=== PATIENT | female | born 1990 | race Caucasian/White ===

== ENCOUNTER 2019-11-14 22:05 | Inpatient (IN) | payer OTHER ==
[2019-11-14 23:07] VITALS: BMI 27.6
[2019-11-15] MEDS ORDERED: Lidocaine 1% (PF) 30 ML VIAL SC PRN
[2019-11-15] MEDS ORDERED: NS / Oxytocin 40 units/1000ml 1,000 ML IV PRN
[2019-11-15] MEDS ORDERED: Misoprostol 200 MCG TAB PR PRN
[2019-11-15] MEDS ORDERED: Ondansetron PF 4 MG/2 ML Vial IVP PRN
[2019-11-15] MEDS ORDERED: Promethazine HCl 25 MG/ML VIAL IM PRN
[2019-11-15] MEDS ORDERED: Ibuprofen 800 MG TAB PO PRN
[2019-11-15] MEDS ORDERED: HYDROcodone/Acetaminophen 5/325 mg Tablet PO PRN ×4 (00:10→05:22)
[2019-11-15 00:28] LABS: Hemoglobin 12.3 g/dL (12.0-16.0); Mean Corpuscular HGB CONC 34.8 g/dL (32.0-36.0); Mean Corpuscular Hemoglobin 33.5 pg (27.0-31.0); Mean Corpuscular Volume 96.2 fL (78.0-98.0); Mean Platelet Volume 7.7 fL (7.4-10.4); Platelet Count 224 thou/uL (130-400); RBC Distribution Width 12.1 % (11.5-14.5); Red Blood Cell (RBC) Count 3.67 mill/uL (4.20-5.40); White Blood Cell (WBC) Count 12.5 thou/uL (4.8-10.8)
[2019-11-15 01:06] LABS: HBSAg Index 0.19 S/CO (0-0.99); Hep B Surf Ag Non-Reactive S/CO (NonReactive); Syphilis Antibody Nonreactive (Nonreactive); Syphilis Antibody Index 0.04 S/CO (<1.00 Non-Reactive)
[2019-11-15] MEDS ORDERED: Oxytocin 10 UNITS/ML VIAL ONE (02:28)
--- NOTE | 2019-11-15 03:33 | PDOC.LDHP ---
Labor and Delivery H&P Chief complaint: contractions HPI: Patient started having strong contractions last night at 1900. Current gestational age (weeks): 38 Dating criteria: last menstrual period Grav: 2 Para: 1 OB History Details: 35 week IOL for Preeclampsia complicated by 3rd degree laceration Current complications: none Abnormal US findings: No Current medications: pre- vitamins, other (81 mg Aspirin PO QD) Allergies/Adverse Reactions: Allergies Allergy/AdvReac Type Severity Reaction Status Date / Time No Known Allergies Allergy Verified 11/14/19 23:07 Social history: none - Physical Exam Vital signs reviewed and normal: yes General: NAD Lungs: nonlabored breathing Abdomen: gravid FHT: category 1 - Vaginal Exam cm dilated: 5 Effacement: 90% Station: -2 - OB Labs Blood type: B RH: positive Antibody Screen: negative HIV: negative RPR: negative HEPSAg: negative 1 hour GCT: negative GBS: negative Rubella: immune - Assessment L&D Assessment: term patient in labor - Plan Plan: admit to L&D, informed consent obtained
--- NOTE | 2019-11-15 03:35 | PDOC.OPDEL ---
OB Operative/Delivery Note Delivery Dr/Surgeon: Marie Carroll Pre-Delivery Diagnosis: active labor Procedure/Post Delivery Dx: spontaneous vaginal delivery Weeks gestation: 38 Anesthesia: none - Findings A Sex: male Weight: 6 lb 14 oz - 1 min: 9 - 5 min: 9 - Additional Findings/Plan Placenta delivered: spontaneous Repaired Obstetrical Laceration: none Estimated blood loss: 95ml Compilations/Other Findings: compound presentation with both hands Post delivery plan: routine recovery
[2019-11-15] MEDS ORDERED: hydrALAZINE 20 MG/ML VIAL SLOW IVP PRN ×2 (05:22)
[2019-11-15] MEDS ORDERED: Milk Of Magnesia 30 ML UDCUP PO PRN (05:22)
[2019-11-15] MEDS ORDERED: Bisacodyl 10 MG SUPP PR PRN (05:22)
[2019-11-15] MEDS ORDERED: NS / Oxytocin 40 units/1000ml 1,000 ML IV SCH (05:22)
[2019-11-15] MEDS ORDERED: Benzocaine-Menthol 82.5 ML CAN TOP PRN (05:22)
[2019-11-15] MEDS ORDERED: Methylergonovine 0.2 MG/ML VIAL IM PRN (05:22)
[2019-11-15] MEDS ORDERED: Adacel (T-DAP) 0.5 ML SYRINGE IM ONE (09:00)
[2019-11-15] MEDS: Ibuprofen 800 MG TAB PO SCH ×3 (09:36→21:05)
[2019-11-15] MEDS: Ferrous Sulfate 325 MG TAB PO SCH ×2 (09:37→14:53)
[2019-11-15] MEDS: Docusate Calcium (SURFAK) 240 MG CAP PO SCH ×2 (09:37→21:05)
[2019-11-15] MEDS: Prenatal Vitamin 1 TAB PO SCH (09:37)
[2019-11-16] MEDS: Ibuprofen 800 MG TAB PO SCH ×2 (06:05→13:55)
--- NOTE | 2019-11-16 06:42 | PDOC.PP ---
Post Progress Note Post Day #: 1 Subjective: pt is doing well. minmal cramping pain with . up to bathroom with ease. no concerns. pt refused rhogam despite counseling because she page s not to mix other people's DNA with her own. PO intake tolerated: yes Flatus: yes Ambulation: yes Vital Signs (12 hours) Temp Pulse Resp BP Pulse Ox 11/16/19 00:05 98.4 F 63 18 102/63 98 11/15/19 20:30 98.4 F 62 18 114/58 L 98 Weight Weight 156 lb - Physical Examination General: NAD Respiratory: non-labored breathing Abdominal: lochia (minimal) Skin: no rash Neurological: no gross focal deficits Psychiatric: A&Ox3, normal affect Result Diagrams: 11/15/19 00:20 Additional Labs: Post Labs Blood Type B NEGATIVE 11/15/19 00:37 Hep Bs Antigen Non-Reactive S/CO (NonReactive) 11/15/19 00:20 (1) (spontaneous vaginal delivery) Code(s): O80 - ENCOUNTER FOR FULL-TERM UNCOMPLICATED DELIVERY Status: Acute (2) Blood type, Rh negative Code(s): Z67.91 - UNSPECIFIED BLOOD TYPE, RH NEGATIVE Status: Acute - Assessment/Plan A: G2 now p2 s/p P: discharge home 6 week post visit Extensive counseling on the risks of Declines rhogam to future pregnancies from isoimmunization.
[2019-11-16] MEDS: Docusate Calcium (SURFAK) 240 MG CAP PO SCH (09:02)
[2019-11-16] MEDS: Ferrous Sulfate 325 MG TAB PO SCH ×2 (09:02→13:55)
[2019-11-16] MEDS: Prenatal Vitamin 1 TAB PO SCH (09:03)
[2019-11-16 09:05] VITALS: BP 129/68; TEMP 97.5
== END 2019-11-16 15:50 | disposition home or self-care (01) | DRG 807 ==
LOC: L&D/OP 22:05 → L&D 23:43 → L&D-LIB 11-15 00:32 → 3SW 11-15 05:51
PROVIDERS: ADMIT Student in an Organized Health Care Education/Training Program; ATTEND Student in an Organized Health Care Education/Training Program
PROC: 10E0XZZ Delivery of Products of Conception, External Approach (ICD-10-PCS; principal; 2019-11-15)
DX: O80 Encounter for full-term uncomplicated delivery (principal); Z37.0 Single live birth; Z3A.38 38 weeks gestation of pregnancy; Z67.91 Unspecified blood type, Rh negative
CPT/HCPCS: 36415; 85027; 85460; 85461; 86780; 86850; 86900; 86901; 87340; 99285; J2590